=== PATIENT | female | born 1970 | race Caucasian/White ===

== ENCOUNTER 2023-06-03 08:36 | Emergency (ER) | payer OTHER, SELFPAY ==
[2023-06-03] VITALS (16 sets, daily range): BP systolic 120–146; BP diastolic 71–86; PULSE 52–75; RESP 12–20; TEMP 36.4; O2SAT 95–100
--- NOTE | ~2023-06-03 | CT_ITS ---
EXAMINATION: CT abdomen pelvis w con DATE: 06/03/2023 10:04 INDICATION: Left upper abdominal pain TECHNIQUE: Computed tomography (CT) of the abdomen and pelvis was performed with 100 cc Omnipaque 350 intravenous contrast. The dose-length product was 765.39 mGy-cm. Automated exposure control and iter ative reconstruction technique were employed. COMPARISON: None. FINDINGS: Lung bases unremarkable. Heart size normal. No significant pleural or pericardial effusion. No significant vascular abnormality. No lymphadenopathy. There are multiple small low-density lesion s of the spleen, too small to characterize there is an irregular low-density mass in the right hepati c lobe measuring 1.3 cm. The pancreas, adrenal glands and kidneys are unremarkable. Gallstones are pr esent. There is gallbladder wall thickening with possible pericholecystic fluid. There is a small albert tral lower abdominal wall hernia containing fluid below the level of the umbilicus mild lumbar spondy losis. IMPRESSION: 1. Cholelithiasis with gallbladder wall thickening and possible pericholecystic fluid. Consider renuka cystitis in the appropriate clinical setting. 2: Multiple small subcentimeter hypovascular lesions of the spleen which may represent benign cysts, hemangiomas, or less likely sequela of infection (i.e. microabscess disease). 3: Small infraumbilical hernia containing fluid. Reviewed, dictated and finalized at location A. IMPRESSION: 1. Cholelithiasis with gallbladder wall thickening and possible pericholecystic fluid. Consider cholecystitis in the appropriate clinical setting. 2: Multiple small subcentimeter hypovascular lesions of the spleen which may r epresent benign cysts, hemangiomas, or less likely sequela of infection (i.e. m icroabscess disease). 3: Small infraumbilical hernia containing fluid.
[2023-06-03 09:03] LABS: Basophils Percent Auto 0.6 % (0.2-1.2); Eosinophils Absolute Auto 0.1 K/mm3 (0-0.3); Hematocrit 37.8 % (37.0-47.0); Hemoglobin 11.7 g/dL (12.0-15.0); Immature Granulocyte Absolute 0.01 K/mm3 (0.00-0.031); Immature Granulocyte Percent A 0.2 % (0-0.5); Lymphocytes Absolute Auto 1.83 K/mm3 (0.9-3.2); Lymphocytes Percent Auto 38.2 % (18.3-44.2); Mean Corpuscular Hemoglobin 28.8 pg (26-34); Mean Corpuscular Volume 93.1 fl (80-100); Mean Platelet Volume 11.9 fl (7.4-10.4); Monocytes Absolute Auto 0.3 K/mm3 (0.1-0.6); Monocytes Percent Auto 7.1 % (2.6-8.5); Neutrophils Absolute Auto 2.5 K/mm3 (1.3-6.7); Neutrophils Percent Auto 52.9 % (45.5-73.1); Platelet Count Result 194 k/mm3 (150-375); Red Blood Count 4.06 M/mm3 (4.2-5.4); Red Cell Distribution Width 15.4 % (11.5-14.5); White Blood Count 4.8 K/mm3 (4.5-10.0)
[2023-06-03 09:16] LABS: Appearance Urine Clear (Clear); Bilirubin Urine Negative (Negative); Blood Urine Negative (Negative); Color Urine Yellow (Yellow); Glucose Urine UA Negative (Negative); Ketones Urine Negative (Negative); Leukocyte Esterase Ur Negative LEU/UL (Negative); Nitrate Urine Negative (Negative); Protein Urine Negative (Negative); Specific Grav Ur 1.006 (1.001-1.035); Urobilinogen Urine 0.2 mg/dL (<2.0)
[2023-06-03 09:16] LABS: Alanine Aminotransferase 18 U/L (6-35); Albumin Level 3.7 g/dL (3.5-5.1); Alkaline Phosphatase 70 U/L (38-126); Anion Gap 8 mmol/L (8-16); Aspartate Amino Transferase 23 U/L (14-36); Bilirubin,Total 0.3 mg/dL (0.2-1.3); Blood Urea Nitrogen 13 mg/dL (7-17); Calcium 8.4 mg/dL (8.4-10.2); Carbon Dioxide 25 mmol/L (22-30); Chloride 103 mmol/L (98-107); Estimated CRCL calculation 90 ml/min; Estimated Glomerular Filt Rate > 60; Glucose 82 mg/dL (65-110); Lipase 49 U/L (23-300); Potassium 3.7 mmol/L (3.4-5.0); Sodium 136 mmol/L (137-145)
[2023-06-03 09:18] LABS: Lactic Acid Reflex 0.9 mmol/L (0.7-2.0)
[2023-06-03 09:41] LABS: Add Urine Microscopic? NO
[2023-06-03] MEDS: BELLADONNA ALK/PHENOB ELIX 10 ML, MAG HYDROX/ALUMINUM HYD/SIMETH 30 ML, LIDOCAINE HCL 2... PO (09:46)
--- NOTE | 2023-06-03 09:53 | ED.ABDPAIN ---
HPI - Abdominal Pain General Chief Complaint: Abdominal Pain Stated Complaint: LUQ pain into back x2 weeks Time Seen by Provider: 06/03/23 08:37 History of Present Illness HPI narrative: 52-year-old female present emergency department for evaluation of upper quadrant pain that has been ongoing for the past 3 weeks. 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 Patient did have follow-up with her primary care physician last week and was started on prednisone and muscle relaxant which she states had no significant improvement Related Data Allergies Allergy/AdvReac Type Severity Reaction Status Date / Time amoxicillin Allergy Unknown Unknown Verified 06/03/23 08:37 sulfamethoxazole Allergy Unknown Unknown Verified 06/03/23 08:37 trimethoprim Allergy Unknown Unknown Verified 06/03/23 08:37 Review of Systems Review of Systems: All systems reviewed & are unremarkable except as noted in HPI and below Exam Narrative: APPEARANCE: Well appearing, no pain, no distress, well-nourished. HEAD: normocephalic, atraumatic. EYES: PERRLA/EOMI, conjunctivae clear. NOSE: Normal no drainage EARS:TMS clear with good light reflex. THROAT: Pharynx clear, no exudate. NECK: Supple. No adenopathy, no masses. RESPIRATORY: Airway patent, respirations nonlabored. Clear to auscultation bilaterally, no rales, rhonchi, wheezing. CARDIOVASCULAR: Regular rate and rhythm without murmurs rubs or gallops. ABDOMINAL: Soft, nontender, nondistended, normal bowel sounds MUSCULOSKELETAL: Moves all extremities. Strength/ROM intact, No edema, No calf tenderness. NEURO: Alert. Cranial nerves II through XII intact. Grossly intact SKIN: Warm, dry. Normal Color Course Course Emergency Course: 52-year-old female presented to the emergency department for evaluation of left upper quadrant pain. Patient had no significant improvement of her symptoms with the GI cocktail. Patient has no tenderness to palpation along the rib or left upper quadrant. Patient was afebrile with no leukocytosis and a stable hemoglobin of 1.7. Patient's CMP shows no significant abnormalities. UA shows no evidence of infection. Patient states that she was at [facility] yesterday was started on antibiotics. CT scan showed cholelithiasis but patient has no right upper quadrant symptoms. There is also evidence of possible cyst in the spleen but patient has normal red and white blood cell count, with no tenderness to palpation. Patient family updated the results of the work-up and patient was encouraged of close follow-up with her primary care physician. Patient was provided additional medication for pain control for home. All questions and concerns were addressed. Vital Signs Vital signs: Vital Signs Temperature 97.6 F 06/03/23 08:43 Pulse Rate 75 06/03/23 08:43 Respiratory Rate 18 06/03/23 08:43 Blood Pressure 120/79 06/03/23 08:43 Pulse Oximetry 100 06/03/23 08:43 Oxygen Delivery Room Air 06/03/23 08:43 Temperature 97.6 F 06/03/23 08:43 Pulse Rate 52 L 06/03/23 11:11 Respiratory Rate 18 06/03/23 11:11 Blood Pressure 146/86 H 06/03/23 11:11 Pulse Oximetry 99 06/03/23 11:11 Oxygen Delivery Room Air 06/03/23 08:43 MDM - Abdominal Pain Differential Diagnosis Differential diagnosis: Likely abdominal pain, acute appendicitis, calculus of kidney, constipation, diverticulitis, gastroenteritis, pancreatitis and small bowel obstruction Lab Data Attestation: I reviewed the patient's lab results. 06/03/23 08:55 06/03/23 08:55 Labs: Lab Results 06/03/23 06/03/23 06/03/23 Range/Units 08:55 09:02 09:09 WBC 4.8 (4.5-10.0) K/mm3 RBC 4.06 L (4.2-5.4) M/mm3 Hgb 11.7 L (12.0-15.0) g/dL Hct 37.8 (37.0-47.0) % MCV 93.1 (80-100) fl MCH 28.8 (26-34) pg MCHC 31.0 L (32-36) g/dl RDW 15.4 H (11.5-14.5) % Plt Count 194 (150-375) k/mm3 MP
[2023-06-03] MEDS: HYDROcodone/acetaminophen (*CRX) 5-325 MG TABLET 1 TAB PO (11:02)
== END 2023-06-03 11:12 | disposition home or self-care (01) ==
PROVIDERS: Emergency Provider Emergency Medicine; PCP Nurse Practitioner
DX: R10.12 Left upper quadrant pain (principal); K80.20 Calculus of gallbladder without cholecystitis without obstruction; K42.9 Umbilical hernia without obstruction or gangrene; D73.9 Disease of spleen, unspecified
CPT/HCPCS: 36415; 74177; 80053; 81003; 83605; 83690; 85025; 99284; A9270; Q9967

== ENCOUNTER → 2023-07-10 13:09 | Outpatient (CLI) | payer OTHER, SELFPAY ==
--- NOTE | ~2023-07-10 | MM_ITS ---
EXAMINATION: MM screening mendoza BI w pop HISTORY: Screening mammogram TECHNIQUE: Craniocaudal and mediolateral oblique 3-D tomosynthesis images were obtained and synthetic 2-D images were generated. CAD analysis was submitted and interpreted. COMPARISON: No prior mammogram is available for comparison at this institution. BREAST PARENCHYMAL COMPOSITION: There are scattered areas of fibroglandular density. FINDINGS: RIGHT BREAST: No suspicious mass, calcification, or architectural distortion are identified to sugges t malignancy. LEFT BREAST: There is a possible mass in the posterior third of the lower, slightly outer breast 9 cm from the nipple. IMPRESSION: 1. Possible left breast mass. 2. Additional mammographic views and possible breast ultrasound are recommended. BI-RADS Category 0: Incomplete: Needs additional imaging evaluation. Reviewed, dictated and finalized at location A. IMPRESSION: 1. Possible left breast mass. 2. Additional mammographic views and possible breast ultrasound are recommended . BI-RADS Category 0: Incomplete: Needs additional imaging evaluation.
== END ==
PROVIDERS: PCP Nurse Practitioner; Visit Provider Nurse Practitioner
DX: Z12.31 Encounter for screening mammogram for malignant neoplasm of breast (principal); R92.8 Other abnormal and inconclusive findings on diagnostic imaging of breast
CPT/HCPCS: 77063; 77067

== ENCOUNTER 2024-03-14 09:12 | Outpatient (CLI) | payer OTHER, SELFPAY ==
--- NOTE | ~2024-03-14 | MMUS_ITS ---
EXAMINATION: MM diagnostic mendoza LT w pop, US breast LT limited HISTORY: Possible mass reported in the posterior third of the lower slightly outer right breast 9 cm from nipple on 07/10/2023 screening mammogram TECHNIQUE: Additional 3-D tomosynthesis images of the left breast were performed and synthetic 2-D im ages were generated. CAD analysis was submitted and interpreted. High resolution targeted left breast ultrasound was performed. COMPARISON: 07/01 bilateral screening mammogram FINDINGS: MAMMOGRAPHIC FINDINGS: In approximately 3.5 x 5.5 mm low-density circumscribed opacity is noted in the posterior lower aspec t of the central breast slightly lateral to the mid sagittal plane. There appears to be a radiolucent hilus. This is most likely a benign intramammary lymph node. ULTRASOUND: . Targeted ultrasound at 5:00 5 cm from the nipple reveals a 3.4 x 5.6 x 5.3 mm benign-appearing lymp h node, with fatty hilum with blood vessel at the hilum. IMPRESSION: 1. Benign intramammary lymph node at 5:00 posteriorly; no evidence of malignancy 2. Routine annual mammographic screening is recommended BI-RADS Category 2: Benign finding(s). Reviewed, dictated and finalized at location A. IMPRESSION: 1. Benign intramammary lymph node at 5:00 posteriorly; no evidence of malignanc y 2. Routine annual mammographic screening is recommended BI-RADS Category 2: Benign finding(s).
== END 2024-03-14 09:13 ==
PROVIDERS: PCP Nurse Practitioner; Visit Provider Nurse Practitioner
DX: R92.8 Other abnormal and inconclusive findings on diagnostic imaging of breast (principal)
CPT/HCPCS: 76642; 77061; 77065; G0279